=== PATIENT | male | born 1955 | race Caucasian/White ===

== ENCOUNTER 2021-09-27 06:36 | Day surgery (SDC) | payer OTHER ==
[~2021-09-27 06:36] MED LIST: CRESTOR20 MG; DEXILANT60 MG; FAMOTIDINE PO; GLUMETZA500 MG PO; PRILOSEC20 MG; VITAMIN D PO; [UNRECOGNIZED DRUG - OTHER]
[2021-09-27] MEDS ORDERED: AYR SALINE50 ML NASAL (11:11)
[2021-09-27] MEDS ORDERED: CEPHALEXIN500 M1 PO (11:12)
== END 2021-09-27 13:30 | disposition home or self-care (01) ==
LOC: CIR.AMB 06:36
PROVIDERS: ATTEND Otolaryngology Otology & Neurotology
DX: J34.3 Hypertrophy of nasal turbinates (principal); R09.81 Nasal congestion; J34.2 Deviated nasal septum; E78.5 Hyperlipidemia, unspecified; G47.33 Obstructive sleep apnea (adult) (pediatric); Z99.89 Dependence on other enabling machines and devices; E11.9 Type 2 diabetes mellitus without complications; F41.9 Anxiety disorder, unspecified; Z79.82 Long term (current) use of aspirin